=== PATIENT | female | born 1995 | race Caucasian/White ===

== ENCOUNTER → 2025-01-04 | Outpatient (CLI) | payer MEDICAID, SELFPAY ==
--- NOTE | 2025-01-04 13:14 | XR_ITS ---
Examination: Transvaginal ultrasound of the pelvis, complete Technique: Transvaginal sonographic images pelvis performed using owens scale imaging Exam date and time: January 04, 2025 1347 hours INDICATIONS: Heavy vaginal bleeding beginning October 28, 2024 FINDINGS: Uterus 7.5 cm endometrium 2.9 cm Right ovary 3.2 cm arterial flow Left ovary 3.4 cm arterial flow IMPRESSION: Thickened endometrium, clinical correlation advised, retained products of conception would be included in the differential
--- NOTE | 2025-01-04 13:22 | XR_ITS ---
Examination: Pelvic ultrasound, transabdominal, complete Technique: Transabdominal ultrasound of the pelvis performed using grayscale imaging Date and time of exam: January 04, 2025 1336 hours. INDICATIONS: Heavy vaginal bleeding beginning October 28, 2024 FINDINGS: Uterus 9.9 cm endometrial stripe 2.5 cm Right ovary 3.2 cm arterial flow Left ovary 3.4 cm arterial flow IMPRESSION: Thickened endometrium, clinical correlation advised
== END | disposition home or self-care (01) ==
LOC: CDIM 13:00
PROVIDERS: PCP Student in an Organized Health Care Education/Training Program; Referring Provider Obstetrics & Gynecology; Visit Provider Obstetrics & Gynecology
DX: R93.89 Abnormal findings on diagnostic imaging of other specified body structures (principal); O02.1 Missed abortion
CPT/HCPCS: 76830; 76856

== ENCOUNTER → 2025-02-05 | Outpatient (CLI) | payer MEDICAID, SELFPAY ==
--- NOTE | 2025-02-05 | XR_ITS ---
Examination: PA lateral chest 2 views TECHNIQUE: Upright PA lateral chest 2 views Date and time: February 05, 2025 1141 hours INDICATIONS: Shortness of breath beginning 6 months ago. FINDINGS: Normal heart size. Lungs are clear. The osseous structures are intact. IMPRESSION: No active disease.
== END | disposition home or self-care (01) ==
PROVIDERS: PCP Student in an Organized Health Care Education/Training Program; Referring Provider Student in an Organized Health Care Education/Training Program; Visit Provider Student in an Organized Health Care Education/Training Program
DX: R06.02 Shortness of breath (principal)
CPT/HCPCS: 71046